=== PATIENT | female | born 1950 | race Hispanic/Latino ===

== ENCOUNTER → 2021-06-22 | Outpatient (CLI) | payer MEDICARE ==
[~2021-06-22] MED LIST: ACTONEL35 MG PO; ALIVE PO; ATENOLOL50 MG PO; B12 PO; BIOTIN800 MCG PO; INVOKAMET PO; LISINOPRIL20 MG PO; MAG-OXIDE400 MG PO; OMEGA 3 1,0001 EACH PO; OYST-CAL-500500 MG PO; PEPCID20 MG PO; PRAVASTATIN SOD10 MG PO
== END ==
LOC: LAB 10:47
PROVIDERS: ATTEND Orthopaedic Surgery Sports Medicine
DX: M25.311 Other instability, right shoulder (principal); Z20.822 Contact with and (suspected) exposure to COVID-19
CPT/HCPCS: U0002

== ENCOUNTER → 2021-07-06 | Outpatient (CLI) | payer MEDICARE | LOC: LAB 09:12 | PROVIDERS: ATTEND Orthopaedic Surgery Sports Medicine | DX: Z01.812 Encounter for preprocedural laboratory examination (principal); Z20.822 Contact with and (suspected) exposure to COVID-19; M25.311 Other instability, right shoulder | CPT/HCPCS: U0002 ==

== ENCOUNTER 2023-06-29 10:54 | Outpatient (RCR) | payer MEDICARE ==
[~2023-06-29 10:54] MED LIST changes: +ASPIRIN81 MG PO; +GLUCOSAMINE1000 MG PO; +IRON PO; +MECLIZINE HCL12.5 MG PO; +METOPROLOL SUCC50 MG PO; +TRULICITY0.75 MG/0. SC; +TYLENOL EXTRA500 MG PO; +VITAMIN C1000 MG PO; +VITAMIN D325 MCG PO
== END 2023-07-03 ==
LOC: PT 10:54
PROVIDERS: ATTEND Physician Assistant
DX: Z47.1 Aftercare following joint replacement surgery (principal); Z96.652 Presence of left artificial knee joint